=== PATIENT | female | born 1990 | race Hispanic/Latino ===

== ENCOUNTER 2024-04-08 16:19 | Observation (INO) | payer MEDICAID, SELFPAY ==
[2024-04-08 16:41] VITALS: BMI 25.9
[2024-04-08] MEDS ORDERED: hydrALAZINE 20 MG/ML VIAL SLOW IVP PRN ×2 (17:18→22:55)
[2024-04-08] MEDS ORDERED: Lactated Ringer's 1,000 ML IV SCH (18:15)
[2024-04-08] MEDS ORDERED: Acetaminophen 500 MG TAB PO SCH (18:30)
[2024-04-08] MEDS: Lactated Ringer's 1,000 ML IV SCH (18:40)
[2024-04-08 20:04] LABS: Bilirubin Neg (Negative); Blood, Urine 10 (Negative); Clarity Clear (Clear); Glucose, Urine (Dipstick) Normal (Negative); Ketone, Urine Negative (Negative); Leukocyte Negative (Negative); Nitrite Negative (Negative); Protein, Urine (Dipstick) Negative (Neg-Trace); Specific Gravity, Urine 1.005 (1.005-1.030); Urobilinogen Normal mg/dL (Less than 2)
[2024-04-08 20:22] LABS: RBC/HPF 0-3 HPF (0-3)
[2024-04-08 20:23] LABS: Bacteria/HPF None Seen HPF (None Seen); CAUTI Indications for Culture Pregnancy; Squamous Epithelial None Seen HPF (0-3); Urine Culture Reflex Yes Yes; WBC/HPF None Seen HPF (0-3)
[2024-04-08] MEDS ORDERED: Docusate 100 MG CAP PO PRN (22:55)
[2024-04-08] MEDS ORDERED: Promethazine HCl 25 MG/ML VIAL IM PRN (22:55)
[2024-04-08] MEDS ORDERED: Carboprost 250 MCG/ML AMP IM PRN (22:55)
[2024-04-08] MEDS ORDERED: Misoprostol 200 MCG TAB PR PRN (22:55)
[2024-04-08] MEDS ORDERED: Ondansetron PF 4 MG/2 ML Vial IVP PRN (22:55)
[2024-04-08] MEDS ORDERED: Methylergonovine 0.2 MG/ML VIAL IM PRN (22:55)
[2024-04-08] MEDS ORDERED: Diphenoxylate HCl/Atropine Tablet PO PRN (22:55)
[2024-04-08] MEDS ORDERED: Tranexamic Acid 1,000 MG/10 ML VIAL IVP PRN (22:55)
[2024-04-08] MEDS ORDERED: Oxytocin 30 units/NS 500 ML 500 ML IV SCH (23:00)
[2024-04-09] MEDS: Acetaminophen 500 MG TAB PO SCH (07:38)
[2024-04-09 23:49] LABS: Chlamydia by PCR, Vaginal Swab *Indeterminate (NotDetected); GC by PCR, Vaginal Swab *Indeterminate (NotDetected); Tric.vaginalis PCR,Vaginal Sw *Indeterminate (NotDetected)
[2024-04-11 12:00] LABS: Group B Streptococcus by PCR Not Detected (NotDetected)
== END 2024-04-09 11:10 | disposition home or self-care (01) ==
LOC: CSHLD/OP 16:19 → EDBD 16:19 → CSHLD 21:37
PROVIDERS: ADMIT Family Medicine; ATTEND Family Medicine
DX: O47.1 False labor at or after 37 completed weeks of gestation (principal); O09.33 Supervision of pregnancy with insufficient antenatal care, third trimester; O99.013 Anemia complicating pregnancy, third trimester; Z90.49 Acquired absence of other specified parts of digestive tract; Z79.899 Other long term (current) drug therapy; Z3A.38 38 weeks gestation of pregnancy
CPT/HCPCS: 81001; 87086; 87491; 87591; 87653; 87661; 96360; 99285; G0378